=== PATIENT | female | born 1955 | race Caucasian/White ===

== ENCOUNTER 2016-10-09 11:24 | Emergency (ER) | payer SELFPAY ==
[~2016-10-09] VITALS: Ht 160 cm; Wt 63.0 kg
[~2016-10-09 11:24] MED LIST: BUSP10 PO; ERYT.5%O LEFT EYE; FLUO-1 PO; HYDR-3534 PO
[2016-10-09 11:26] VITALS: BP 140/90; PULSE 74; RESP 20; TEMP 100.4; O2SAT 94
[2016-10-09] MEDS ORDERED: BUSP10TA PO (11:37)
[2016-10-09] MEDS ORDERED: FLUO-1 PO (11:37)
[2016-10-09] MEDS ORDERED: HYDR-3583 PO (11:37)
[2016-10-09] MEDS ORDERED: SODIUM CHLOR 0.9% 1000 ML INJ 1,000 ML IV SCH (11:54)
[2016-10-09] MEDS ORDERED: ONDANSETRON HCL 4 MG/2 ML VIAL IVP ONE (12:00)
[2016-10-09] MEDS ORDERED: ALUMINUM/MAGNESIUM/SIMETH 30 ML CUP PO ONE (12:00)
[2016-10-09] MEDS ORDERED: LIDOCAINE VISCOUS 2% SOLN 15 ML UDC PO ONE (12:00)
[2016-10-09] MEDS ORDERED: SODIUM CHLORIDE 0.9% FLUSH 5 ML FLUSH IVF PRN (12:00)
[2016-10-09] MEDS ORDERED: FAMOTIDINE 20 MG/2 ML VIAL IV PUSH ONE (12:00)
[2016-10-09 12:24] LABS: BASOPHIL % 0.5 % (0.0-2.0); EOSINOPHIL % 0.4 % (0.0-4.0); HEMATOCRIT 40.8 % (35.0-46.0); HEMO FLAGS DIFF FINAL; LYMPH % 50.3 % (9.0-44.0); LYMPHOCYTE # 1.4 TH/MM3 (1.0-4.8); MEAN CELL VOLUME 90.7 FL (80.0-100.0); MEAN CORPUSCULAR HEMOGLOBIN 30.3 PG (27.0-34.0); MEAN CORPUSCULAR HGB CONC 33.4 % (32.0-36.0); MONO % 10.6 % (0.0-8.0); NEUT % 38.2 % (16.0-70.0); PLATELET COUNT 203 TH/MM3 (150-450); RED CELL DISTRIBUTION WIDTH 13.1 % (11.6-17.2); WHITE BLOOD COUNT 2.7 TH/MM3 (4.0-11.0)
[2016-10-09 12:33] LABS: APTT (PATIENT) 26.7 SEC (24.3-30.1); INTERNATIONAL NORMALIZED RATIO 0.9 RATIO; PROTHROMBIN TIME - PATIENT 10.2 SEC (9.8-11.6)
[2016-10-09 12:43] LABS: ANION GAP 5 MEQ/L (5-15); AST (GOT) 28 U/L (15-37); BICARBONATE 31.7 MEQ/L (21.0-32.0); BLOOD UREA NITROGEN 9 MG/DL (7-18); CHLORIDE 103 MEQ/L (98-107); GLOMERULAR FILTRATION RATE 86 ML/MIN (>89); POTASSIUM 4.3 MEQ/L (3.5-5.1); SODIUM (NA) 140 MEQ/L (136-145)
[2016-10-09 12:47] LABS: ALKALINE PHOSPHATASE 90 U/L (45-117); ALT (GPT) 36 U/L (10-53); TOTAL BILIRUBIN ADULT 0.2 MG/DL (0.2-1.0)
[2016-10-09 13:00] VITALS: BP 136/61; PULSE 55; RESP 16; TEMP 98.9; O2SAT 97
--- NOTE | 2016-10-09 13:20 | RADRPT ---
EXAM DATE/TIME: 10/09/2016 12:23 [place] COMPARISON: CHEST PA & LAT, December 18, 2013, 16:26. INDICATIONS : Chest Pain, Cough, Fever, Nausea. MEDICAL HISTORY : None. SURGICAL HISTORY : None. ENCOUNTER: Initial ACUITY: 4 - 6 days PAIN SCORE: 8/10 LOCATION: Bilateral chest FINDINGS: PA and lateral views of the chest. The lungs are clear. Cardiomediastinal silhouette within normal li mits. No evidence of pleural effusion or pneumothorax. CONCLUSION: No acute cardiopulmonary disease identified. Matthew Hsu MD on October 09, 2016 at 13:18 Board Certified Radiologist. This report was verified electronically.
[2016-10-09] MEDS ORDERED: ZANT150T2 PO (14:24)
--- NOTE | 2016-10-09 14:24 | PD ---
HPI Chief Complaint: Cold / Flu Symptoms Time Seen by Provider: 11:50 Travel History International Travel<30 days: No Contact w/Intl Traveler<30days: No Traveled to known affect area: No History of Present Illness HPI Patient is a 61-year-old female comes in complaining of cough for the past 4 days. She says 2 days ago she developed some pain in her epigastric area. She reports being under a lot of stress lately. She has had some nausea, but denies vomiting. She denies fever or chills. She denies any chest pain or shortness of breath. She says she overall just feels rundown and unwell. PFSH Past Medical History Anxiety: Yes Depression: Yes Cerebrovascular Accident: No ("mini" stroke) Past Surgical History Hysterectomy: Yes (X 10 YRS) Other Surgery: Yes (HYSTERECTOMY) Social History Alcohol Use: No Tobacco Use: No (DENIES) Substance Use: No Allergies-Medications (Allergen,Severity, Reaction): Coded Allergies: No Known Allergies (Verified , 10/09/16) Reported Meds & Prescriptions Reported Meds & Active Scripts Active Reported Hydrocodone-Acetaminophen 10-325 mg Tab 1 Tab PO Q4H PRN Buspirone (Buspirone HCl) 10 Mg Tab 10 Mg PO BID Prozac (Fluoxetine HCl) 10 Mg Cap 10 Mg PO DAILY Review of Systems Except as stated in HPI: all other systems reviewed are Neg General / Constitutional: No: Fever, Chills HENT: No: Headaches, Lightheadedness Cardiovascular: No: Chest Pain or Discomfort Respiratory: No: Shortness of Breath Gastrointestinal: Positive: Nausea, Abdominal Pain Genitourinary: No: Dysuria Musculoskeletal: Positive: Myalgias Skin: No Rash, No Change in Pigmentation Neurologic: No: Weakness, Dizziness Physical Exam Narrative GENERAL: Awake and alert, in no acute distress. SKIN: Warm and dry. HEAD: Atraumatic. Normocephalic. EYES: Pupils equal and round. No scleral icterus. ENT: Mucous membranes pink and moist. NECK: Trachea midline. No JVD. CARDIOVASCULAR: Regular rate and rhythm. No murmur appreciated. RESPIRATORY: No accessory muscle use. Clear to auscultation. Breath sounds equal bilaterally. GASTROINTESTINAL: Abdomen soft, nondistended. Mild tenderness to palpation in the midepigastric area, no rebound or guarding. MUSCULOSKELETAL: No obvious deformities. No clubbing. No cyanosis. No edema. NEUROLOGICAL: Awake and alert. No obvious cranial nerve deficits. Motor grossly within normal limits. Normal speech. PSYCHIATRIC: Appropriate mood and affect; insight and judgment normal. Data Data Last Documented VS Vital Signs Date Time Temp Pulse Resp B/P Pulse Ox O2 Delivery O2 Flow Rate FiO2 10/09/16 13:00 98.9 55 16 136/61 97 Room Air Orders Complete Blood Count With Diff (10/09/16 11:54) Comprehensive Metabolic Panel (10/09/16 11:54) Prothrombin Time / Inr (Pt) (10/09/16 11:54) Act Partial Throm Time (Ptt) (10/09/16 11:54) Troponin I (10/09/16 11:54) Lipase (10/09/16 11:54) Ecg Monitoring (10/09/16 11:54) Bilateral Bp Monitoring (10/09/16 11:54) Iv Access Insert/Monitor (10/09/16 11:54) Oximetry (10/09/16 11:54) Sodium Chloride 0.9% Flush (Ns Flush) (10/09/16 12:00) Chest, Pa & Lat (10/09/16 11:54) Ondansetron Inj (Zofran Inj) (10/09/16 12:00) Sodium Chlor 0.9% 1000 Ml Inj (Ns 1000 M (10/09/16 11:54) Famotidine Inj (Pepcid Inj) (10/09/16 12:00) Al-Mag Hy-Si 40-40-4 Mg/Ml Liq (Mag-Al P (10/09/16 12:00) Lidocaine 2% Viscous (Xylocaine 2% Visco (10/09/16 12:00) Labs Laboratory Tests Test 10/09/16 12:02 White Blood Count 2.7 TH/MM3 Red Blood Count 4.50 MIL/MM3 Hemoglobin 13.6 GM/DL Hematocrit 40.8 % Mean Corpuscular Volume 90.7 FL Mean Corpuscular Hemoglobin 30.3 PG Mean Corpuscular Hemoglobin 33.4 % Concent Red Cell Distribution Width 13.1 % Platelet Count 203 TH/MM3 Mean Platelet Volume 8.0 FL Neutrophils (%) (Auto) 38.2 % Lymphocytes (%) (Auto) 50.3 % Monocytes (%) (Auto) 10.6 % Eosinophils (%) (Auto) 0.4 % Basophils (%) (Auto) 0.5 % Neutrophils # (Auto) 1.0 TH/MM3 Lymphocytes # (Auto) 1.4 TH/MM3 Monocytes # (Auto) 0.3 TH/MM3 Eosinophils # (Auto) 0.0 TH/MM3 Basophils # (Auto) 0.0 TH/MM3 CBC Comment DIFF FINAL Differential Comment Prothrombin Time 10.2 SEC Prothromb Time International 0.9 RATIO Ratio Activated Partial 26.7 SEC Thromboplast Time Sodium Level 140 MEQ/L Potassium Level 4.3 MEQ/L Chloride Level 103 MEQ/L Carbon Dioxide Level 31.7 MEQ/L Anion Gap 5 MEQ/L Blood Urea Nitrogen 9 MG/DL Creatinine 0.69 MG/DL Estimat Glomerular Filtration 86 ML/MIN Rate Random Glucose 94 MG/DL Calcium Level 8.6 MG/DL Total Bilirubin 0.2 MG/DL Aspartate Amino Transf 28 U/L (AST/SGOT) Alanine Aminotransferase 36 U/L (ALT/SGPT) Alkaline Phosphatase 90 U/L Troponin I LESS THAN 0.02 NG/ML Total Protein 7.0 GM/DL Albumin 3.8 GM/DL Lipase 185 U/L [facility] Medical Decision Making Medical Screen Exam Complete: Yes Emergency Medical Condition: Yes Interpretation(s) ECG shows sinus rhythm at 63, no ST elevation or depression, normal intervals. Differential Diagnosis URI versus bronchitis versus pneumonia Narrative Course Patient is a 61-year-old female comes in complaining of cough with some epigastric pain. Exam shows mild epigastric tenderness. IV established, labs sent. Labs show white blood cell count 2.7. Chest x-ray shows no acute abnormalities. Patient given IV fluids, GI cocktail. Patient sleeping comfortably. Reports feeling much better. Patient informed of her lab results. This is likely due to a viral illness. Patient offered admission for epigastric pain. However she declines at this time. I explained that she likely has a virus, but I cannot be sure that her epigastric pain is not cardiac pain. Patient understands this, but says she would still like to go home. Will be discharged with prescription for Zantac. Advised follow-up with a primary doctor. Advised to return to the ED as needed for any worsening symptoms. Diagnosis Primary Impression: Viral illness Additional Impression: Epigastric abdominal pain Patient Instructions: Epigastric Pain (ED), General Instructions, Viral Syndrome (ED) Additional Instructions: Follow up with a primary doctor. Return to the ED as needed for any worsening symptoms. Scripts Ranitidine (Zantac)150 Mg [id number] Mg PO BID #60 TAB Ref 0 Prov:Ana Luisa Mcgee MD 10/09/16 Disposition: 01 DISCHARGE HOME Condition: Stable Ana Luisa Mcgee MD Oct 09, 2016 14:24
[2016-10-09 14:30] VITALS: BP 138/54; PULSE 57; RESP 14; O2SAT 98
--- NOTE | 2016-10-11 13:35 | EKG ---
Date Performed: 10/09/2016 Time Performed: 11:50:17 PTAGE: 61 years EKG: Sinus rhythm NORMAL ECG Compared to prior tracing no significant change PREVIOUS TRACING 07/16/2002 11.04.57 DOCTOR: Mark Petersen Interpretating Date/Time 10/11/2016 13:33:15
== END 2016-10-09 14:44 | disposition home or self-care (01) ==
LOC: NEPA 11:24
DX: B34.9 Viral infection, unspecified (principal); R10.13 Epigastric pain; R05 Cough; R11.0 Nausea; Z86.59 Personal history of other mental and behavioral disorders
CPT/HCPCS: 71020; 80053; 83690; 84484; 85025; 85610; 85730; 93005; 96361; 96374; 96375; 99283; J2405; J7030